=== PATIENT | female | born 1970 | race Caucasian/White ===

== ENCOUNTER 2017-09-04 10:42 | Day surgery (SDC) | payer BC ==
[~2017-09-04] VITALS: Ht 162.6 cm; Wt 91.7 kg
[~2017-09-04 10:42] MED LIST: CYCL10TA PO; HYDR-3516 PO
[2017-09-04 12:00] LABS: AUTOMATED NEUTROPHIL # 4.7 TH/MM3 (1.8-7.7); BASOPHIL # 0.1 TH/MM3 (0-0.2); BASOPHIL % 1.1 % (0.0-2.0); EOSINOPHIL # 0.5 TH/MM3 (0-0.4); EOSINOPHIL % 6.4 % (0.0-4.0); HEMATOCRIT 42.3 % (35.0-46.0); HEMO FLAGS DIFF FINAL; LYMPH % 23.9 % (9.0-44.0); LYMPHOCYTE # 1.8 TH/MM3 (1.0-4.8); MEAN CELL VOLUME 89.7 FL (80.0-100.0); MEAN CORPUSCULAR HEMOGLOBIN 29.6 PG (27.0-34.0); MONO % 5.2 % (0.0-8.0); NEUT % 63.4 % (16.0-70.0); PLATELET COUNT 219 TH/MM3 (150-450); RED BLOOD COUNT 4.72 MIL/MM3 (4.00-5.30); RED CELL DISTRIBUTION WIDTH 14.2 % (11.6-17.2); WHITE BLOOD COUNT 7.4 TH/MM3 (4.0-11.0)
[2017-09-04 12:05] LABS: APTT (PATIENT) 26.6 SEC (24.3-30.1); PROTHROMBIN TIME - PATIENT 10.3 SEC (9.8-11.6)
[2017-09-04 12:16] LABS: ANION GAP 6 MEQ/L (5-15); BICARBONATE 25.2 MEQ/L (21.0-32.0); BLOOD UREA NITROGEN 8 MG/DL (7-18); CHLORIDE 109 MEQ/L (98-107); GLOMERULAR FILTRATION RATE 84 ML/MIN (>89); POTASSIUM 3.7 MEQ/L (3.5-5.1); SODIUM (NA) 140 MEQ/L (136-145)
[2017-09-04 12:20] LABS: BETA HCG QUANT LESS THAN 1 MIU/ML (0-5)
[2017-09-04 12:22] VITALS: BP 139/84; PULSE 58; RESP 18; TEMP 98.2; O2SAT 96
[2017-09-04] MEDS ORDERED: PROP10TA6 PO (12:32)
[2017-09-04] MEDS ORDERED: CETI-1 (12:32)
[2017-09-04] MEDS ORDERED: MECL12.574 PO (12:32)
[2017-09-04] MEDS ORDERED: IOHEXOL 350 MG/ML 50 ML BTL (for Cath Lab) OTHER ONE (12:44)
[2017-09-04] MEDS ORDERED: HEPARIN-NS/PF INJ 1,000 ML ONE ×2 (12:46→12:49)
[2017-09-04] MEDS ORDERED: HEPARIN-NS/PF INJ 500 ML ONE (13:23)
[2017-09-04] MEDS ORDERED: MIDAZOLAM HCL 2 MG/2 ML VIAL ONE (13:24)
--- NOTE | 2017-09-04 14:02 | CATHPROC ---
[employer] HIS Report Study Information Study Number Admission Scheduled Start Study Start [id number] Sep 04 2017 10:42AM 09/04/2017 Sep 04 2017 12:44PM [place] [facility] Cardiac Catheterization Admit Source Facility Department Other [facility] - Agriculture Teacher Physician and Clinical Staff Initial Jayjay Mueller Dope Weigh Operator Emma Yang,RN Other cathlab, cathlab Recorder Amrit Starr,RN Recorder Masood Raymundo RCIS(BS) Scrub Denita Richard RT(R) Procedures Performed Procedure Location (Site) Vessel Name Coronary Angiograms LCA Left Coronary Coronary Angiograms RCA Right Coronary L Heart Cath LV Gram-hand inj. LV LV Ventricle Equipment Time Film Librarian Description Size Mfg Part Number Used/Scraped TRANSDUCER, TRPodPosterAVE [id number] 12:45 DUMAS LEOS * Used W/STOCKCOCK *[id number] *[id number] *[id number] 12:45 MEDLINE IND[employer] PACK, CCL CUSTOM * Used *[id number] 12:45 Parallocity PACER PEN, SKIN DUAL W/ RULER * Used *[id number] 12:45 Cyrba WIRE, 3MMJ .035 180CM 180CM Used *[id number] 12:45 NAMIC MANIFOLD, 4 PORT * Used *[id number] 12:45 NYCOMED OMNIPAQUE, 350 MG, 150ML 150ML [id number] 12:45 [employer]CARAZ MEDICAL BLANKET,WARM AIR CCL * Used *[id number] 12:45 TERUMO MEDICAL SHEATH, FR4 TERUMO (10CM) FR 4 Used *[id number] History: Current Medications Medication Dosage/Unit Route Frequency Last Date/Time Taken Beta Myriam History: Allergies Allergy Reaction No Known Allergies History: Risk Factors Family History of Hypertension Dyslipidemia Previous DC Previous Heart Failure Premature CAD No No No No No Prior Valve Prior PCI Prior CABG Surgery No No No Cerebrovascular Peripheral Artery Chronic Lung On Dialysis Diabetes Disease Disease Disease No No No No No History: Symptoms/Diagnosis Selection Items Chest pain History: Stress Tests Stress or Imaging Studies Performed No History: Other Current Smoker No Labs Hgb (g/dl) Hct (%) WBC (l/cumm) Platelets (thousands) 11.60-17.00 35.00-51.00 4.00-11.00 150.00-450.00 14.0 42.3 7.4 219 Glucose (mg/dl) BUN (mg/dl) Creatinine (mg/dl) BUN:Creatinine (1:x) 74.00-106.00 7.00-18.00 0.50-1.30 10.00-20.00 88 8 0.7 11.4 Na (meq/l) K (meq/l) 136.00-145.00 3.50-5.10 140 3.7 INR (PTT:PT) 0.90-1.10 1 CPK-MB (ng/ML) 0.50-3.60 Not Drawn Medication Medication Total Dose (Bolus/Oral) Medication Total Dosage/Unit 1% XYLOCAINE 20 mL FENTANYL 12.5 mcg VERSED 1 mg Medications (Bolus/Oral) Medication Time Given Dosage/Unit Administered By Reason VERSED 09/04/2017 1:38:52 PM 1 mg Emma Yang Patient arrived on 1 mg VERSED given by Emma Yang RN in Left Forearm via Peripheral IV. Ordere d by Jayjay Yost. 1% XYLOCAINE 09/04/2017 1:39:08 PM 20 mL Jayjay Yost 20 mL 1% XYLOCAINE given in lab by Jayjay Yost in Right Groin via Subcutaneous. FENTANYL 09/04/2017 1:42:19 PM 12.5 mcg Emma Yang 12.5 mcg FENTANYL given in lab by Emma Yang, JEAN-PAUL in Left Forearm via Peripheral IV. Ordered by Jayjay [place]. Medication (Drip) Medication Time Given Dosage/Unit Concentration/Unit Diluent (ml) Solution 09/04/2017 12:44:36 IV Solutions 0 mL (IV) 500 NaCl .9 PM Patient arrived on IV Solutions given by audra zhu in Left Forearm via Peripheral IV. Pump/Dri p Flow = 20 ml/hr using NaCl .9. Ordered by Jayjay Yost. Final Case Assessment Cardiovascular HR Rhythm NIBP Chest Pain 67 nsr 122/86 0 Edema Present Skin color Skin None Normal Warm Dry Circulatory - Right Pulses Dorsalis Pedis Femoral 2 2 Scale (0,1,2,3,4,d) Circulatory - Left Pulses Dorsalis Pedis Femoral 2 2 Scale (0,1,2,3,4,d) Neurological State Oriented to time-place- Alert Moves all extremities person Respiration - General Respiration Rate SpO2 (%) (B/min) 15 95 Initial Case Assessment Cardiovascular HR Rhythm NIBP Chest Pain 73 nsr 113/74 0 Edema Present Skin color Skin None Normal Warm Dry Circulatory - Right Pulses Dorsalis Pedis Femoral 2 2 Scale (0,1,2,3,4,d) Circulatory - Left Pulses Dorsalis Pedis Femoral 2 2 Scale (0,1,2,3,4,d) Neurological State Oriented to time-place- Alert Moves all extremities person Respiration - General Respiration Rate SpO2 (%) (B/min) 15 95 Chronological Log Time Study Chronological Log 12:44:25 Patient arrived via Bed. 12:44:25 Patient Name, D.O.B, / Armband Verified By R.N. 12:44:26 Consent signed by the physician and the patient and verified by the Agriculture Teacher staff. 12:44:26 Pre-op and post- op instructions given; patient acknowledges understanding of instructions. 12:44:27 Verbal Stimulation=2 Physical Stimulation=2 Airway=2 Respiration=2 TOTAL=8. (0=absent, 1=li mited, 2=present) 12:44:30 Presedation assessment performed by Agriculture Teacher RN. 12:44:31 Immediate Presedation assesment performed by physician. 12:44:31 Patient has been NPO for More than 6Hrs. 12:44:32 Skin Breakdown- none per patient 12:44:34 Patient Warmer Placed on the Table. 12:44:35 Cristine Prominences Protected 12:44:35 A # 20 IV was noted in the Forearm (left). Grade = 0 Patient arrived on IV Solutions given by cathlabaudra in Left Forearm via Peripheral IV. Pu mp/Drip Flow = 20 ml/hr 12:44:36 using NaCl .9. Ordered by Jayjay Yost. 12:44:36 History and physical on the chart or being dictated. 12:51:35 Reference ECG taken Vitals capture started with the following parameters, Patient=Adult, Interval=5 min, Initial Pr xkylfl=085 mmHg, 12:51:36 Deflation Rate=5 mmHg, Cuff placed on Left Arm 12:52:07 HR=67 bpm, YHZY=274/86 mmhg, SpO2=95 %, Resp=10 B/min, Pain=0, Alena=10, Roland=2 Assessment: Final Case, HR=67 BPM, Rhythm=nsr, UDES=075/86 mmhg, Chest Pain=0, Edema=None, Medora r=Normal, Skin = Warm, Dry Right Pulses: Benjamin Ped=2, Femoral=2 12:52:40 Left Pulses: Benjamin Ped=2, Femoral=2 Neurological: State=Alert, Ox3, ENGLE Respiration: Resp=15 B/min, SpO2=95 % 12:55:06 Bilateral groins prepped with 2% chlorhexidine, and draped after a 3 minute waiting time. 12:56:50 MD paged 12:56:59 MD responded 12:57:11 HR=73 bpm, LXFH=752/82 mmhg, HpU9=883 %, Resp=12 B/min, Pain=0, Alena=10, Roland=2 12:58:36 Pressure channel 1 zeroed. 13:02:14 HR=69 bpm, VUSJ=132/81 mmhg, HhJ7=124.0 %, Resp=15 B/min, Pain=0, Alena=10, Roland=2 13:07:15 HR=70 bpm, CMTX=445/70 mmhg, SpO2=99.0 %, Resp=13 B/min, Pain=0, Alena=10, Roland=2 13:12:18 HR=70 bpm, WVJE=285/73 mmhg, SpO2=99.0 %, Resp=15 B/min, Pain=0, Alena=10, Roland=2 13:17:07 HR=72 bpm, WIDP=619/83 mmhg, JgY9=138.0 %, Resp=16 B/min, Pain=0, Alena=10, Roland=2 13:22:10 HR=67 bpm, KORG=327/81 mmhg, HoT0=195.0 %, Resp=11 B/min, Pain=0, Alena=10, Roland=2 13:27:13 HR=71 bpm, OYBT=328/78 mmhg, SpO2=99.0 %, Resp=15 B/min, Pain=0, Alena=10, Roland=2 13:32:12 HR=67 bpm, IXXX=669/77 mmhg, SpO2=98.0 %, Resp=11 B/min, Pain=0, Alena=10, Roland=2 13:34:00 MD arrived. 13:37:13 HR=66 bpm, NNHJ=488/77 mmhg, SpO2=99.0 %, Resp=16 B/min, Pain=0, Alena=10, Roland=2 13:37:59 Contrast Scanned 13:38:00 Immediate Presedation assesment performed by physician. Time Out. Correct patient, correct procedure, correct physician, power injector not loaded with contrast with surgical 13:38:33 team present. Time Out Concurred by MD and individual staff in procedure. 13:38:43 Case Start 13:38:46 Verbal Stimulation=2 Physical Stimulation=2 Airway=2 Respiration=2 TOTAL=8. (0=absent, 1=li mited, 2=present) Patient arrived on 1 mg VERSED given by Emma Yang, RN in Left Forearm via Peripheral IV. Ordered by Priyank, 13:38:52 Jayjay. 13:39:08 20 mL 1% XYLOCAINE given in lab by Jayjay Yost in Right Groin via Subcutaneous. 13:41:49 Access site was Right Femoral Artery. 13:41:52 A SHEATH, FR4 TERUMO (10CM) FR 4 was advanced into the Fem Art (right) using the Percutaneo us technique. 12.5 mcg FENTANYL given in lab by Emma Yang, JEAN-PAUL in Left Forearm via Peripheral IV. Ordere d by Priyank, 13:42:19 Jayjay. 13:42:20 HR=81 bpm, DPYE=850/50 mmhg, SpO2=99.0 %, Resp=15 B/min, Pain=0, Alena=10, Roland=2 Recorded Pressure: LV, HR=67, Condition=Condition 1 13:43:24 (Left Ventricle) LV 133/3/12 13:43:37 The LV was manually injected with 10 cc's and visualized. OMNIPAQUE, 350 MG, 150ML 150ML us ed. Recorded Pressure: LV, Ao, HR=75, Condition=Condition 1 13:43:42 (Left Ventricle) LV 112/-24/49, (Aorta) Ao 139/87/111 Recorded Pressure: Ao, HR=69, Condition=Condition 1 13:44:00 (Aorta) Ao 131/78/102 13:44:11 The RCA was injected and visualized at various angles. OMNIPAQUE, 350 MG, 150ML 150ML used . 13:44:58 Catheter was removed A JL 4.0 INFINITI CATHETER FR 4 was advanced over a wire. OMNIPAQUE, 350 MG, 150ML 150ML was us ed for 13:44:58 injections. 13:46:02 The LCA was injected and visualized at various angles. OMNIPAQUE, 350 MG, 150ML 150ML use d. 13:47:15 HR=68 bpm, ABMM=370/74 mmhg, SpO2=97.0 %, Resp=16 B/min, Pain=0, Alena=10, Roland=2 13:47:50 Catheter was removed 13:47:52 Case End Assessment: Initial Case, HR=73 BPM, Rhythm=nsr, AKNS=043/74 mmhg, Chest Pain=0, Edema=None, C olor=Normal, Skin = Warm, Dry Right Pulses: Benjamin Ped=2, Femoral=2 13:48:12 Left Pulses: Benjamin Ped=2, Femoral=2 Neurological: State=Alert, Ox3, ENGLE Respiration: Resp=15 B/min, SpO2=95 % 13:48:37 Catheter(s) removed without difficulty 13:48:39 No case complications noted. 13:48:40 Cine recording checked. 13:48:42 Bedside Report will be given. 13:48:43 Contrast Scanned 13:48:44 A Left Heart Cath was performed. 13:50:00 Sheath removed; pressure applied to access site. 13:52:14 HR=65 bpm, YVJE=067/75 mmhg, SpO2=98.0 %, Resp=13 B/min, Pain=0, Alena=10, Roland=2 13:57:15 HR=71 bpm, MCFS=340/67 mmhg, SpO2=99.0 %, Resp=11 B/min, Pain=0, Alena=10, Roland=2 14:01:53 Sterile dressing applied to site 14:02:09 Vitals capture stopped. 14:02:11 Patient moved to stretcher End Study - Contrast Media Used In Study Contrast Total Opened (mL) Total Used (mL) Total Wasted (mL) Omnipaque 15 15 0 End Study - Maximum Contrast Load Max Contrast Load (mL) 654.9 End Study - Radiation Exposure Fluoro Time (minutes) 1.3 End Study - Sheaths Sheaths Pulled By Sheath Hold Time (min) Denita Richadr 12 End Study - Patient Disposition Complications Transferred To Interventional Outcome No Agriculture Teacher Holding No attempt made
[2017-09-04] MEDS ORDERED: MISC INFORMATION XX ONE (14:15)
[2017-09-04] MEDS ORDERED: SODIUM CHLORIDE 0.9% FLUSH 10 ML FLUSH IV FLUSH PRN (14:15)
[2017-09-04] MEDS ORDERED: ASPIRIN 81 MG CHEW TAB PO SCH (15:00)
[2017-09-04 15:03] LABS: HDL CHOLESTEROL 51.5 MG/DL (40.0-60.0); INDIRECT BILIRUBIN 0.4 MG/DL (0.0-0.8); TOTAL BILIRUBIN ADULT 0.5 MG/DL (0.2-1.0)
--- NOTE | 2017-09-04 20:07 | MA ---
cc: TOMASZ COUCH M.D. DATE 09/04/2017 PROCEDURE Left heart catheterization, left ventriculography, coronary angiography. INDICATION Coronary artery disease, unstable angina, [place] Cardiovascular Society class IV angina, abnormal nuclear stress test, tobacco use. PROCEDURE DETAILS The patient brought to the cardiac catheterization laboratory, prepped and draped in the usual sterile fashion. 10 ccs of 1% lidocaine was used to locally anesthetize the right common fr4m artery. A 4-Mauritian sheath subsequently placed in the right common femoral artery, 4-Mauritian JR-4, JL-4 catheters were used to perform left and right coronary angiography, left ventriculography. FINDINGS The LV pressures 130/5-08. Ejection fraction 60%. Right coronary artery is dominant. There is mild disease in the proximal segment and the mid segment of 5-10% angiographically. There did not appear to be focal stenosis in the proximal segment. However the proximal vessel appears to be 3.5-4.0 mm in diameter. The mid vessel appears to be 5 mm in diameter so the relative stenosis of approximately 20-25% in the very proximal segment. Left main coronary artery has no significant disease angiographically. Left circumflex vessel has mild disease in the ostium up to 10-20% angiographically. First obtuse marginal vessel is a small vessel with mild disease proximally up to 20% angiographically. The second obtuse marginal vessel is a small vessel, no significant disease angiographically. The left circ terminates into a small to medium size posterolateral artery with no significant disease angiographically. The LAD is non transapical. It has mild disease in the proximal segment up to 5-10% angiographically. After the third diagonal artery the vessel tapers from a 3.25-3.5 mm vessel to 2.0-2.25 mm vessel with no focal segmental stenosis. There is mild diffuse disease throughout the distal LAD up to 10% angiographically. First, second, third diagonal arteries are small vessels with no significant obstructive disease. CONCLUSION 1. Angiographically mild three-vessel coronary artery disease in a right-dominant system. 2. Normal fraction, ejection fraction 60%. 3. Recommend medical management of coronary artery disease, cardiac risk factors modification. I have strongly advised the patient to stop smoking. I have also advised the patient to start taking aspirin 81 mg daily and will check fasting lipids guidelines. MD ARAMIS Sheridan/KAL /1:53 PM /7:42 PM
[2017-09-04] MEDS ORDERED: SODIUM CHLORIDE 0.9% FLUSH 10 ML FLUSH IV FLUSH SCH (21:00)
--- NOTE | 2017-09-05 16:00 | EKG ---
Date Performed: 09/04/2017 Time Performed: 12:31:06 PTAGE: 46 years EKG: Sinus rhythm . Low QRS voltages in precordial leads Borderline ECG NO PREVIOUS TRACING DOCTOR: Armen Cottrell Interpretating Date/Time 09/05/2017 15:58:52
== END 2017-09-04 16:08 | disposition home or self-care (01) ==
LOC: HDOC 10:42 → HDIC 10:42 → HDOC 16:08
PROVIDERS: ATTEND Internal Medicine Interventional Cardiology
DX: I25.110 Atherosclerotic heart disease of native coronary artery with unstable angina pectoris (principal); R00.2 Palpitations; E78.00 Pure hypercholesterolemia, unspecified; F17.200 Nicotine dependence, unspecified, uncomplicated; Z01.818 Encounter for other preprocedural examination
CPT/HCPCS: 80048; 80061; 80076; 82550; 84702; 85025; 85610; 85730; 93005; 93458; 99152; C1769; C1893; J1644; J2250; J3010; Q9967